=== PATIENT | female | born 1950 | race African-American/Black ===

== ENCOUNTER 2016-07-13 18:46 | Inpatient (IN) | payer BC, OTHER ==
[~2016-07-13] VITALS: Ht 165.1 cm; Wt 99.6 kg
[~2016-07-13 18:46] MED LIST: BYSTOLIC5 MG PO; CYCL1DRO EACHEYE; DOCU-27 PO; ENOX40DI SQ; LEVO100T PO; LIRA0.6P2 PO; LOSA1TAB18 PO; LOSA25TA4 PO; MIRA50TA PO; MULT1TAB52 PO; OMEG500C PO; OXYC-323 PO; PANT40TA3 PO; RIVA20TA2 PO; SUCR1TAB PO
[2016-07-13 20:25] VITALS: BP 137/80
--- NOTE | 2016-07-13 20:35 | EKG ---
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
[2016-07-13] MEDS ORDERED: POTASSIUM CHLORIDE 10 MEQ TABLET.ER. PO ONE (22:00)
[2016-07-13 22:19] LABS: MAGNESIUM 2.2 mg/dL (1.8-2.4); PHOSPHORUS 3.4 mg/dL (2.6-4.7)
[2016-07-13 22:22] LABS: ALBUMIN 3.7 g/dL (3.4-5.0); CALCIUM 9.1 mg/dL (8.5-10.1); GFR 67.5; TOTAL BILIRUBIN 0.5 mg/dL (0.2-1.0); TOTAL PROTEIN 7.3 g/dL (6.4-8.2)
[2016-07-13 22:25] LABS: POTASSIUM 2.6 mmol/L (3.5-5.1)
[2016-07-13 22:29] LABS: CKMB INDEX 0.7 % (0-4); CKMB MASS 2.3 ng/mL (0.0-3.6)
[2016-07-13 23:10] VITALS: BP 123/56
[2016-07-13] MEDS: CALCIUM CARBONATE 500 MG TAB.CHEW PO PRN (23:30)
[2016-07-14 03:05] VITALS: BP 130/62
[2016-07-14] MEDS: LEVOTHYROXINE 100 MCG TABLET PO SCH (06:26)
[2016-07-14 07:00] VITALS: BP 131/68
[2016-07-14] MEDS ORDERED: PANTOPRAZOLE 40 MG TABLET. PO SCH (07:00)
[2016-07-14] MEDS ORDERED: POTASSIUM CHLORIDE 20 MEQ TABLET.ER. PO ONE ×3 (08:00→21:15)
[2016-07-14] MEDS ORDERED: POTASSIUM CHLORIDE 10 MEQ TABLET.ER. PO ONE ×2 (08:00→13:45)
[2016-07-14] MEDS: LOSARTAN POTASSIUM 50 MG TABLET. PO SCH (08:49)
[2016-07-14] MEDS: SUCRALFATE 1 GM TABLET. PO SCH ×4 (08:50→20:52)
[2016-07-14] MEDS: CARVEDILOL 12.5 MG TABLET PO SCH ×2 (08:50→18:02)
[2016-07-14] MEDS ORDERED: SPIRONOLACTONE 25 MG TABLET PO SCH (09:00)
[2016-07-14 10:50] VITALS: BP 135/71
[2016-07-14 14:56] VITALS: BP 119/63
--- NOTE | 2016-07-14 18:35 | HP ---
ADMIT DATE: 07/13/2016 HISTORY OF PRESENT ILLNESS: This is a 66-year-old black female who has been hospitalized for severe cramps and hypokalemia. I saw her on the evening of the . She stated that she was having severe cramps in her muscles and that is what she felt when she was hypokalemic in the past. Lab work was drawn. The lab work was available to me on the evening of the . Her potassium was found to be 2.7. When I called her, she said that she was still having severe cramps, was also having palpitations. With the fear that she may be having arrhythmia, she was hospitalized for potassium replacement. Over 10 years ago, she said she was hypokalemic and had to be given IV potassium supplements. She does not know the circumstances of why the hypokalemia occurred. Again, about 2 years ago, she was having a colonoscopy. The potassium drawn just before that was low. The colonoscopy was canceled. Again, she was given potassium supplements and the colonoscopy was rescheduled. I am not sure whether the prep caused her to be hypokalemic, though it usually does not do so. She says that she had hysterectomy and bilateral salpingo-oophorectomy last month. Ever since her surgery, she has been having episodes of vomiting, which occurs almost every day, but not necessarily every day. She has had no vomiting for 2 days. She has had no diarrhea. The potassium loss is probably due to the vomiting. She is also on hydrochlorothiazide 12.5 mg along with losartan. I went over the chart. She sees Dr. Fuller. 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 Her potassium usually ranges from 3.4-4 mEq per liter. She has hypertension. She has dyslipidemia. She has diabetes. PRESENT MEDICATIONS: 1. Eye drops. 2. Colace 100 mg twice a day. 3. Synthroid 100 mcg a day. 4. Victoza 3 times a day. 5. Losartan/hydrochlorothiazide 100/12.5 mg once a day. 6. Myrbetriq for urinary frequency 50 mg a day. 7. Bystolic 5 mg a day. 8. Oxycodone. 9. Protonix 40 mg a day. 10. Xarelto 20 mg a day. 11. Carafate 1 tablet 4 times a day. When I saw her in the office on the , her blood pressure significantly elevated. Her blood pressure has been elevated since she has been taking the Myrbetriq. She feels she needs the Myrbetriq. I have asked her to increase the dose of Bystolic to 10 mg a day. LABORATORY DATA: Her labs in the office showed that her diabetes is under good control. Her TSH is normal. The potassium was 2.2. PHYSICAL EXAMINATION: GENERAL: She was in no acute distress. VITAL SIGNS: The heart rate was 80 per minute and regular. There were very occasional PVCs. Blood pressure 130/80. LUNGS: Clear. HEART: The heart sounds are normal with no murmur or gallop. ABDOMEN: Soft. It is not distended. EXTREMITIES: There is no edema of the legs. IMPRESSION: 1. Severe hypokalemia causing palpitations and muscle cramps. 2. History of recent episodes of vomiting, probably causing the hypokalemia. 3. Hypertension. 4. Diabetes, under control. An attempt was made to place an IV. This was not possible. We will give oral potassium and check her potassium levels frequently. We will also place her on a drug that tends to retain potassium. is not available. We will thus give her spironolactone. We will have to check her potassium levels frequently. YUMIKO FIELDS MD DR: EDITH/benjamin JOB#: [id number] / [id number]
[2016-07-14 19:33] VITALS: BP 133/67
[2016-07-14] MEDS: SPIRONOLACTONE 25 MG TABLET PO SCH (20:52)
[2016-07-14] MEDS ORDERED: DIPHENHYDRAMINE HCL 25 MG CAPSULE PO PRN (22:00)
[2016-07-14 23:40] VITALS: BP 116/64
[2016-07-15 03:41] VITALS: BP 133/64
[2016-07-15] MEDS: CALCIUM CARBONATE 500 MG TAB.CHEW PO PRN (04:27)
[2016-07-15 05:28] LABS: CALCIUM 8.7 mg/dL (8.5-10.1); GFR 67.5; POTASSIUM 3.6 mmol/L (3.5-5.1)
--- NOTE | 2016-07-15 05:34 | ACF ---
Admission Forms Criteria HYPONATREMIA; HYPERNATREMIA; HYPOKALEMIA; HYPERKALEMIA; HYPOCALCEMIA; HYPERCALCEMIA Clinical Indications for Inpatient Care (Place 'X' for any and all applicable criteria): Ongoing inpatient care may be indicated for ANY ONE of the following [G](1)(2)(3 )(5): [ ]I. Hyponatremia with ANY ONE of the following: [ ]a) Sodium less than 130 mEq/L (mmol/L) (new) (6)(22) [ ]b) Sodium less than 135 mEq/L (mmol/L) with ANY ONE of the following: [ ]i) Severe medical etiology requiring inpatient management (eg, heart failure, hypovolemia) [ ]ii) Altered mental status [ ]iii) Seizures [ ]II. Hypernatremia with ANY ONE of the following: [ ]a) Sodium greater than 155 mEq/L (mmol/L) [ ]b) Sodium greater than 150 mEq/L (mmol/L) with ANY ONE of the following: [ ] i) Altered mental status [ ]ii) Seizures [ ]iii) Severe medical etiology (eg, hypovolemia, diabetes insipidus) [ ]iv) Severe weakness [ ]v) Severe medical etiology (eg, hemolysis, infection, drug overdose) [X]III. Hypokalemia with ANY ONE of the following: [ ]a) Potassium less than 2.5 mEq/L (mmol/L) despite outpatient and emergency treatment [X]b) Potassium less than 3.0 mEq/L (mmol/L) with ANY ONE of the following: [ ]i) Weakness [ ]ii) Cardiac abnormality (eg, arrhythmia, conduction disturbance) [ ]iii) Cardiac ischemia [ ]iv) Ileus [ ]v) Ongoing medical cause requiring inpatient management. ( e.g., acute renal wasting, SIADH) [X]vi) Other severe symptoms [ ] IV. Hyperkalemia with ANY ONE of the following: [ ]a) Potassium greater than 6.5 mEq/L (mmol/L) [ ]b) Potassium greater than 5 mEq/L (mmol/L) with ANY ONE of the following: [ ]i) Severe ECG findings [H] [ ]ii) Acute worsening of renal failure (creatinine greater than 2.5 mg/dL (221 micromoles/L) or significant elevation for age and size) [ ] V. Hypocalcemia with ANY ONE of the following: [ ]a) Calcium less than 7 mg/dL (1.75 mmol/L) despite outpatient and emergency treatment(19) [ ]b) Calcium less than 8 mg/dL (2 mmol/L) with significant symptoms or findings; examples include: [ ]i) Cardiac abnormality (eg, arrhythmia or conduction disturbance) [ ]ii) Altered mental status [ ]iii) Seizures [ ]iv) Breathing difficulty [ ]v) Muscle spasms [ ]. Hypercalcemia with ANY ONE of the following: [ ]a) Calcium greater than 14 mg/dL (3.5 mmol/L) [ ]b) Calcium greater than 12 mg/dL (3 mmol/L) with ANY ONE of the following: [ ]i) Significant dehydration or hypovolemia as indicated by ANY ONE of the following(2): [ ]1. Clinically significant dehydration as indicated by ANY ONE of the following: [ ]A. Acute loss of weight from baseline (5% of body weight in adults, 9% in pediatric patients) [ ]B. Hemodynamic instability [ ]C. Acute renal failure [ ]D. Serum sodium greater than 150 mEq/L (mmol/L) [ ]2) Dehydration that is persistent indicated by ALL of the following: [ ]A. Oral rehydration therapy not tolerated or insufficient to adequately correct dehydration [ ]B. Appropriate intravenous treatment (eg, fluids ) does not readily correct dehydration ie, after 12 to 24 hours of treatment) [ ]ii) Significant symptoms or findings; examples include: [ ]1) Altered mental status [ ]2) Cardiac abnormality (eg, arrhythmia, conduction disturbance) [ ]3) Cardiac abnormality (eg, arrhythmia, conduction disturbance) The original [facility] content created by [id number] has been revised. The portions of the content which have been revised are identified through the use of italic text or in bold, and [facility] has neither reviewed nor approved the modified material. All other unmodified content is copyright [facility] [employer] Please see references footnoted in the original [facility] [email or web address] edition 2016 Admission Criteria Met?: Yes CUONG PANDA Jul 15, 2016 05:34
[2016-07-15] MEDS: LEVOTHYROXINE 100 MCG TABLET PO SCH (06:59)
[2016-07-15 07:50] VITALS: BP 147/74
[2016-07-15] MEDS: SUCRALFATE 1 GM TABLET. PO SCH ×2 (07:50→12:24)
[2016-07-15] MEDS ORDERED: PANTOPRAZOLE 40 MG TABLET. PO SCH (08:00)
[2016-07-15] MEDS: CARVEDILOL 12.5 MG TABLET PO SCH (08:49)
[2016-07-15] MEDS: LOSARTAN POTASSIUM 50 MG TABLET. PO SCH (08:49)
[2016-07-15] MEDS: SPIRONOLACTONE 25 MG TABLET PO SCH (08:50)
[2016-07-15 11:31] VITALS: BP 138/73
[2016-07-15] MEDS ORDERED: POTASSIUM CHLORIDE 10 MEQ TABLET.ER. PO ONE (15:00)
[2016-07-15] MEDS ORDERED: LOSA100T6 PO (15:13)
[2016-07-15] MEDS ORDERED: SPIR25TA3 PO (15:13)
[2016-07-15] MEDS ORDERED: PANTOPRAZOLE 40 MG TABLET. PO PRN (15:15)
[2016-07-15] MEDS ORDERED: OXYCODONE/APAP 5/325 TABLET. PO PRN ×2 (15:15→15:30)
[2016-07-15] MEDS ORDERED: POTA10TA10 PO (15:15)
[2016-07-15 15:55] VITALS: BP 141/75
[2016-07-15] MEDS ORDERED: SUCRALFATE 1 GM TABLET. PO SCH (16:30)
[2016-07-15] MEDS ORDERED: DOCUSATE SODIUM 100 MG CAPSULE PO SCH (21:00)
[2016-07-15] MEDS ORDERED: CYCLOSPORINE 0.05% OPTH DROPERETTE. OU SCH (21:00)
[2016-07-15] MEDS ORDERED: METOPROLOL TART IMMED RELEASE 25 MG TABLET PO SCH (21:00)
--- NOTE | 2016-07-15 21:57 | DS ---
DATE OF DISCHARGE: 07/15/2016 HOSPITAL COURSE: This is a 66-year-old black female who saw me in the office complaining of severe muscle cramps and palpitations. She was on hydrochlorothiazide 12.5 with losartan 100 mg a day. She was not on any potassium supplements. Lab work was drawn. She was found to be significantly hypokalemic with potassium of 2.7 mEq per liter. Because of her significant symptoms and palpitations, she was hospitalized and monitored. Oral potassium was given. Her potassium was checked every 4 hours. Her potassium at the time of admission was down to 2.6 mEq per liter. The next morning it was 3. The next evening it was still 3.6. By the 15 morning, it had gone up to 3.7 and stayed at that level. The magnesium level was normal at 2.2. Her renal functions were normal. In addition to the potassium, she was also given spironolactone 50 mg twice a day. She had no further cramps. She was feeling better. She was thus discharged because her potassium level had now become normal at 3.[address]. FINAL DIAGNOSES: 1. Severe hypokalemia causing palpitations and muscle cramps. 2. Hypertension. 3. Gastroenteritis. 4. Recent hysterectomy. OTHER LAB INVESTIGATIONS: The BUN was 13, creatinine was 1. The blood sugars stayed normal. The CK was up to 342. The phosphorus was normal. HOMEGOING INSTRUCTIONS: 1. Activities to tolerance. 2. Low sodium diet. 3. Eye drops. 4. Colace 100 mg twice a day. 5. Synthroid 100 mcg a day. 5. Victoza 0.6 mg a day. 6. Losartan 100 mg a day. 7. Spironolactone 25 mg twice a day. 8. Potassium chloride 10 mEq twice a day. 9. She was asked to stop the Myrbetriq. 10. Bystolic 5 mg a day. 11. Percocet. 12. Protonix 40 mg twice a day. 13. Carafate 1 g before each meal and at night. She will be followed in the office on the , at which time labs will be done. YUMIKO FIELDS MD DR: EDITH/benjamin JOB#: [id number] / [id number]
[2016-07-16] MEDS ORDERED: LEVOTHYROXINE 100 MCG TABLET PO SCH (07:30)
[2016-07-16] MEDS ORDERED: NON FORMULARY ITEM (Liraglutide (Victoza 3-Pak) 0.6 MG) PO SCH (09:00)
== END 2016-07-15 15:50 | disposition home or self-care (01) | DRG 641 ==
LOC: 2 SOUTH 19:49
PROVIDERS: ADMIT Specialist; ATTEND Specialist
DX: E87.6 Hypokalemia (principal); I10 Essential (primary) hypertension; E78.5 Hyperlipidemia, unspecified; E11.9 Type 2 diabetes mellitus without complications; K52.9 Noninfective gastroenteritis and colitis, unspecified; Z90.710 Acquired absence of both cervix and uterus; Z98.890 Other specified postprocedural states
CPT/HCPCS: 36415; 80048; 80053; 82553; 82947; 83735; 84100; 84132; 84133; 87086; 93005; Q0163

== ENCOUNTER 2016-11-20 05:21 | Emergency (ER) | payer BC, OTHER ==
[~2016-11-20] VITALS: Ht 165.1 cm; Wt 99.3 kg
[~2016-11-20 05:21] MED LIST changes: +DOCU-109 PO; -DOCU-27 PO; +LOSA100T6 PO; +POTA10TA12 PO; +SPIR25TA3 PO
--- NOTE | 2016-11-20 06:19 | ED.ADGEN ---
Past Medical History Past Medical History: Diverticulitis, GERD, Hypertension, Hypothyroid, Other Additional Past Medical Histor: TAKES MECLINZINE FOR MOTION SICKNESS, BLOOD CLOT, DVT Past Surgical History: Appendectomy, Hysterectomy, Other Additional Past Surgical Histo: RODRIGUEZ SHUNT, EGD, Alcohol Use: None Drug Use: None Adult General Chief Complaint Chief Complaint: LOWER EXT PAIN HPI HPI Patient is a 66 year old, history of hypothyroidism, hypertension, DVT in the right lower extremity back in August of this year, who presents to the emergency department with complaint of pain and swelling in the right lower extremity the past 6 days. Patient denies any injuries, denies any recent travel or surgery, states that she started on estradiol patch in September of this year. She was treated for approximately 1 year with Lovenox and then Xarelto after a previous DVT was diagnosed in August of last year. Patient states that the cause of the DVT was not determined. She denies any chest pain or shortness of breath, denies any weakness, numbness, tingling, rashes or skin changes, GI or complaints, any weakness, numbness or tingling. She has not taken any medication for pain prior to coming to the ED. She has not yet taken her morning medications. Review of Systems Review of Systems Constitutional: Denies fever or chills. [] Eyes: Denies change in visual acuity. [] HENT: Denies nasal congestion or sore throat. [] Respiratory: Denies cough or shortness of breath. [] Cardiovascular: Denies chest pain or edema. [] GI: Denies abdominal pain, nausea, vomiting, bloody stools or diarrhea. [] : Denies dysuria. [] Musculoskeletal: Denies back pain or joint pain. In swelling in the right lower extremity, from behind the knee radiating in the lateral aspect of the leg down to the ankle. Integument: Denies rash. [] Neurologic: Denies headache, focal weakness or sensory changes. [] Endocrine: Denies polyuria or polydipsia. [] Lymphatic: Denies swollen glands. [] Psychiatric: Denies depression or anxiety. [] Current Medications Current Medications Current Medications Medications (Trade) Dose Ordered Sig/Kevyn Start Time Stop Time Status Last Admin Dose Admin Acetaminophen (Tylenol) 650 mg 1X ONCE 11/20/16 06:30 11/20/16 06:31 DC 11/20/16 06:36 650 MG Cyclobenzaprine HCl (Flexeril) 5 mg 1X ONCE 11/20/16 06:30 11/20/16 06:31 DC 11/20/16 06:36 5 MG Allergies Allergies Allergies Coded Allergies Type Severity Reaction Last Updated Verified Sulfa (Sulfonamide Antibiotics) Allergy Intermediate 06/14/16 Yes Physical Exam Physical Exam Constitutional: Well developed, well nourished, no acute distress, non-toxic appearance. [] HENT: Normocephalic, atraumatic, bilateral external ears normal, oropharynx moist, no oral exudates, nose normal. [] Eyes: PERRLA, EOMI, conjunctiva normal, no discharge. [] Neck: Normal range of motion, no tenderness, supple, no stridor. [] Cardiovascular:Heart rate regular rhythm, no murmur, S1, S2, no rubs or gallops. [] Lungs & Thorax: Bilateral breath sounds clear to auscultation, no wheezing, rhonchi, rales. No chest wall crepitus or tenderness. [] Abdomen: Bowel sounds normal, soft, no tenderness, no masses, no pulsatile masses. [] Skin: Warm, dry, no erythema, no rash. [] Back: No tenderness, no CVA tenderness. [] Extremities: Tenderness palpation in the popliteal fossa, on the lateral aspect of the calf on the right lower extremity, no significant swelling identified, pain with passive and active range of motion, no cyanosis, no clubbing, ROM intact, no edema. [] Neurologic: Alert and oriented X 3, normal motor function, normal sensory function, no focal deficits noted. [] Psychologic: Affect normal, judgement normal, mood normal. [] Current Patient Data Vital Signs Vital Signs Date Time Temp Pulse Resp B/P (MAP) Pulse Ox O2 Delivery O2 Flow Rate FiO2 11/20/16 05:43 95.5 65 18 192/86 (121) 98 Room Air 95.5 Lab Values Laboratory Tests Test 11/20/16 07:00 White Blood Count 4.6 x10^3/uL (4.0-11.0) Red Blood Count 4.19 x10^6/uL (3.50-5.40) Hemoglobin 12.8 g/dL (12.0-15.5) Hematocrit 38.9 % (36.0-47.0) Mean Corpuscular Volume 93 fL (79-100) Mean Corpuscular Hemoglobin 31 pg (25-35) Mean Corpuscular Hemoglobin Concent 33 g/dL (31-37) Red Cell Distribution Width 13.5 % (11.5-14.5) Platelet Count 156 x10^3/uL (140-400) Neutrophils (%) (Auto) 65 % (31-73) Lymphocytes (%) (Auto) 21 % (24-48) L Monocytes (%) (Auto) 9 % (0-9) Eosinophils (%) (Auto) 5 % (0-3) H Basophils (%) (Auto) 1 % (0-3) Neutrophils # (Auto) 3.0 x10^3uL (1.8-7.7) Lymphocytes # (Auto) 0.9 x10^3/uL (1.0-4.8) L Monocytes # (Auto) 0.4 x10^3/uL (0.0-1.1) Eosinophils # (Auto) 0.2 x10^3/uL (0.0-0.7) Basophils # (Auto) 0.0 x10^3/uL (0.0-0.2) Sodium Level 144 mmol/L (136-145) Potassium Level 3.5 mmol/L (3.5-5.1) Chloride Level 108 mmol/L (98-107) H Carbon Dioxide Level 28 mmol/L (21-32) Anion Gap 8 (6-14) Blood Urea Nitrogen 21 mg/dL (7-20) H Creatinine 0.9 mg/dL (0.6-1.0) Estimated GFR (Cockcroft-Gault) 76.3 Glucose Level 103 mg/dL (70-99) H Calcium Level 8.8 mg/dL (8.5-10.1) Laboratory Tests 11/20/16 07:00 Laboratory Tests 11/20/16 07:00 EKG EKG EC: Sinus rhythm, heart rate 50 bpm, left axis deviation with left ventricular hypertrophy noted, QTc of 437, FL 176, QRS of 84, contour abnormality is noted as stated, no ST elevations or depressions. As interpreted by me. [] Radiology/Procedures Radiology/Procedures [][facility] [address] [place] [address] IMAGING REPORT Signed PATIENT: CELSO HOANG ACCOUNT: [id number] : 1950 LOCATION: ER AGE: 66 SEX: F EXAM STATUS: REG ER ORD. PHYSICIAN: DEVONTE ALFORD DO REASON: Pain/swelling/hx DVT PROCEDURE: VENOUS LOWER EXTREMITY RIGHT Right lower extremity venous ultrasound, 11/20/2016 : History: Right leg pain and swelling Duplex evaluation including grayscale, color flow and spectral Doppler analysis was performed. The femoral and popliteal veins show no filling defects to suggest DVT. The visualized calf veins are unremarkable. IMPRESSION: There is no sonographic evidence of deep vein thrombosis in the right lower extremity DICTATED and SIGNED BY: NANCY WHALEN MD DATE: 11/20/16 0734 CC: DEVONTE ALFORD DO; YUMIKO BARTON MD ~ Course & Med Decision Making Course & Med Decision Making Pertinent Labs and Imaging studies reviewed. (See chart for details) Patient complains of sharp shooting pain in the right lower extremity for the past 5 days, also swelling. Does use an estradiol patch, reports unclear etiology of initial DVT. Patient is complaining of some pain in other parts of her body currently as well, but believes is due to the uncomfortable emergency department bed. Agreeable to receiving ultrasound, laboratory studies to rule out any electrolyte abnormalities or hematologic abnormalities in the causing this cramping sharp and stabbing pain. Ultrasound did not reveal evidence of DVT in the right lower extremity, laboratory studies do not reveal any acutely concerning findings. I did discuss findings as above with Dr. Barton, the patient's primary care provider. On reevaluation patient is feeling better after receiving naproxen the ED, is relieved by the ultrasound findings. Discussed use of naproxen, with food in the stomach to mitigate GERD type symptoms, reasons for discontinuing naproxen, use of cyclobenzaprine and medication precautions. Based on location and presentation of pain, patient may be experiencing some sciatic type symptoms, as the pain in the lateral aspect of the leg radiating down from the posterior aspect in the knee, discussed with Dr. Barton as stated, who will follow the patient in the office. Patient given clear and detailed return and precautions instructions as stated, discharged home in stable condition with plan as above. Dragon Disclaimer Dragon Disclaimer This electronic medical record was generated, in whole or in part, using a voice recognition dictation system. Departure Impression: Primary Impression: Pain of right lower extremity Disposition: 01 HOME, SELF-CARE Condition: IMPROVED Scripts Naproxen (NAPROXEN) 250 Mg Tablet 250 MG PO PRN BID Y for PAIN, #10 Take with food. Stop use if stomach upset develops. Prov: DEVONTE ALFORD DO 11/20/16 Cyclobenzaprine Hcl (CYCLOBENZAPRINE HCL) 10 Mg Tablet 10 MG PO TID Y for MUSCLE PAIN, #12 TAB Prov: DEVONTE ALFORD DO 11/20/16 DEVONTE ALFORD DO November 20, 2016 06:19
[2016-11-20] MEDS ORDERED: ACETAMINOPHEN 325 MG TABLET. PO ONE (06:30)
[2016-11-20] MEDS ORDERED: CYCLOBENZAPRINE 10 MG TABLET. PO ONE (06:30)
[2016-11-20 07:23] LABS: CALCIUM 8.8 mg/dL (8.5-10.1); CREATININE 0.9 mg/dL (0.6-1.0); GFR 76.3; POTASSIUM 3.5 mmol/L (3.5-5.1)
[2016-11-20 07:24] LABS: BASO % 1 % (0-3); EOS % 5 % (0-3); HEMATOCRIT 38.9 % (36.0-47.0); HEMOGLOBIN 12.8 g/dL (12.0-15.5); LYMPH # 0.9 x10^3/uL (1.0-4.8); LYMPH % 21 % (24-48); MEAN CORPUSCULAR HEMOGLOBIN 31 pg (25-35); MEAN CORPUSCULAR HGB CONC 33 g/dL (31-37); MEAN CORPUSCULAR VOLUME 93 fL (79-100); MONO % 9 % (0-9); NEUT % 65 % (31-73); PLATELET COUNT 156 x10^3/uL (140-400); RED BLOOD COUNT 4.19 x10^6/uL (3.50-5.40); RED CELL DISTRIBUTION WIDTH 13.5 % (11.5-14.5); WHITE BLOOD COUNT 4.6 x10^3/uL (4.0-11.0)
--- NOTE | 2016-11-20 07:29 | EKG ---
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
--- NOTE | 2016-11-20 07:37 | RAD ---
Right lower extremity venous ultrasound, 11/20/2016 : History: Right leg pain and swelling Duplex evaluation including grayscale, color flow and spectral Doppler analysis was performed. The femoral and popliteal veins show no filling defects to suggest DVT. The visualized calf veins are unremarkable. IMPRESSION: There is no sonographic evidence of deep vein thrombosis in the right lower extremity
[2016-11-20 07:45] VITALS: BP 162/77
[2016-11-20] MEDS ORDERED: CYCL10TA2 PO (08:03)
[2016-11-20] MEDS ORDERED: NAPR250T2 PO (08:03)
== END 2016-11-20 08:12 | disposition home or self-care (01) ==
LOC: ER 05:21
DX: M79.604 Pain in right leg (principal); M79.89 Other specified soft tissue disorders; E03.9 Hypothyroidism, unspecified; I10 Essential (primary) hypertension; K21.9 Gastro-esophageal reflux disease without esophagitis; Z86.718 Personal history of other venous thrombosis and embolism; Z90.710 Acquired absence of both cervix and uterus; Z90.49 Acquired absence of other specified parts of digestive tract; Z88.2 Allergy status to sulfonamides
CPT/HCPCS: 36415; 80048; 85027; 93005; 93971; 99285-25

== ENCOUNTER 2017-01-26 10:50 | Inpatient (IN) | payer BC, OTHER ==
[~2017-01-26] VITALS: Ht 165.1 cm; Wt 100.3 kg
[~2017-01-26 10:50] MED LIST changes: +CYCL10TA2 PO; +NAPR250T2 PO
--- NOTE | 2017-01-26 11:36 | ED.ADGEN ---
Past Medical History Past Medical History: Diverticulitis, GERD, Hypertension, Hypothyroid, Other Additional Past Medical Histor: TAKES MECLINZINE FOR MOTION SICKNESS, BLOOD CLOT, DVT Past Surgical History: Appendectomy, Hysterectomy, Other Additional Past Surgical Histo: RODRIGUEZ SHUNT, EGD, Alcohol Use: None Drug Use: None Adult General Chief Complaint Chief Complaint: DIZZY/LIGHT HEADED HPI HPI Patient is a 66 year old woman, history of hypertension, obesity, DVT often anticoagulation, who presents to the emergency department with a complaint of dizziness that began last night. Patient describes this as a spinning of the run around her, also a lightheadedness as is pass out, states she feels as though "my chest feels funny", denies any shortness of breath, nausea vomiting, abdominal pain, diarrhea, states that she has some pain in her left lower extremity where she had varicose veins treated last week, states that she is feeling weaker on his left leg, denies any other focal weakness, any numbness or tingling. States that she did feel similar symptoms previously when he had a "low potassium", states this is because of a blood pressure medication that was discontinued and then restarted. Patient was also started on Contrave, naltrexone/bupropion hydrochloride about 3 weeks ago for obesity which she has been taking as directed. Denies any other medication changes or missed doses Review of Systems Review of Systems Constitutional: Denies fever or chills. [] Lightheadedness and dizziness. Eyes: Denies change in visual acuity. [] HENT: Denies nasal congestion or sore throat. [] Respiratory: Denies cough or shortness of breath. [] Cardiovascular: Denies chest pain or edema. [] GI: Denies abdominal pain, nausea, vomiting, bloody stools or diarrhea. [] : Denies dysuria. [] Musculoskeletal: Denies back pain or joint pain. [] Integument: Denies rash. [] Neurologic: Denies headache, focal weakness or sensory changes. Weakness in the left lower extremity.[] Endocrine: Denies polyuria or polydipsia. [] Lymphatic: Denies swollen glands. [] Psychiatric: Denies depression or anxiety. [] Allergies Allergies Allergies Coded Allergies Type Severity Reaction Last Updated Verified Sulfa (Sulfonamide Antibiotics) Allergy Intermediate 06/14/16 Yes Physical Exam Physical Exam Constitutional: Well developed, well nourished, no acute distress, non-toxic appearance. [] HENT: Normocephalic, atraumatic, bilateral external ears normal, oropharynx moist, no oral exudates, nose normal. [] Eyes: PERRLA, EOMI, conjunctiva normal, no discharge. [] Neck: Normal range of motion, no tenderness, supple, no stridor. [] Cardiovascular:Heart rate regular rhythm, no murmur [] Lungs & Thorax: Bilateral breath sounds clear to auscultation [] Abdomen: Bowel sounds normal, soft, no tenderness, no masses, no pulsatile masses. [] Skin: Warm, dry, no erythema, no rash. [] Back: No tenderness, no CVA tenderness. [] Extremities: No tenderness, no cyanosis, no clubbing, ROM intact, no edema. [] Neurologic: Alert and oriented X 3, normal motor function, normal sensory function, no focal deficits noted. [] Psychologic: Affect normal, judgement normal, mood normal. [] Current Patient Data Vital Signs Vital Signs Date Time Temp Pulse Resp B/P (MAP) Pulse Ox O2 Delivery O2 Flow Rate FiO2 01/26/17 11:10 98.1 58 18 149/78 (101) 98 Room Air 98.1 Lab Values Laboratory Tests Test 01/26/17 12:00 01/26/17 13:20 White Blood Count 5.3 x10^3/uL (4.0-11.0) Red Blood Count 4.47 x10^6/uL (3.50-5.40) Hemoglobin 13.7 g/dL (12.0-15.5) Hematocrit 41.1 % (36.0-47.0) Mean Corpuscular Volume 92 fL (79-100) Mean Corpuscular Hemoglobin 31 pg (25-35) Mean Corpuscular Hemoglobin Concent 33 g/dL (31-37) Red Cell Distribution Width 13.2 % (11.5-14.5) Platelet Count 167 x10^3/uL (140-400) Neutrophils (%) (Auto) 67 % (31-73) Lymphocytes (%) (Auto) 18 % (24-48) L Monocytes (%) (Auto) 10 % (0-9) H Eosinophils (%) (Auto) 4 % (0-3) H Basophils (%) (Auto) 1 % (0-3) Neutrophils # (Auto) 3.6 x10^3uL (1.8-7.7) Lymphocytes # (Auto) 1.0 x10^3/uL (1.0-4.8) Monocytes # (Auto) 0.5 x10^3/uL (0.0-1.1) Eosinophils # (Auto) 0.2 x10^3/uL (0.0-0.7) Basophils # (Auto) 0.0 x10^3/uL (0.0-0.2) Prothrombin Time 12.7 SEC (11.7-14.0) Prothrombin Time INR 1.0 (0.8-1.1) PTT 35 SEC (24-38) D-Dimer (Kiki) 0.85 ug/mlFEU (0.00-0.50) H Sodium Level 143 mmol/L (136-145) Potassium Level 3.6 mmol/L (3.5-5.1) Chloride Level 108 mmol/L (98-107) H Carbon Dioxide Level 30 mmol/L (21-32) Anion Gap 5 (6-14) L Blood Urea Nitrogen 21 mg/dL (7-20) H Creatinine 1.0 mg/dL (0.6-1.0) Estimated GFR (Cockcroft-Gault) 67.5 BUN/Creatinine Ratio 21 (6-20) H Glucose Level 93 mg/dL (70-99) Calcium Level 8.6 mg/dL (8.5-10.1) Magnesium Level 2.2 mg/dL (1.8-2.4) Total Bilirubin 0.8 mg/dL (0.2-1.0) Aspartate Amino Transferase (AST) 18 U/L (15-37) Alanine Aminotransferase (ALT) 26 U/L (14-59) Alkaline Phosphatase 46 U/L (46-116) Troponin I Quantitative < 0.017 ng/mL (0.000-0.055) PD-Bxe-J-Type Natriuretic Peptide 89 pg/mL (0-124) Total Protein 6.6 g/dL (6.4-8.2) Albumin 3.5 g/dL (3.4-5.0) Albumin/Globulin Ratio 1.1 (1.0-1.7) Urine Collection Type Unknown Urine Color Yellow Urine Clarity Clear Urine pH 6.5 Urine Specific Ranger 1.010 Urine Protein Negative mg/dL (NEG-TRACE) Urine Glucose (UA) Negative mg/dL (NEG) Urine Ketones (Stick) Negative mg/dL (NEG) Urine Blood Negative (NEG) Urine Nitrite Negative (NEG) Urine Bilirubin Negative (NEG) Urine Urobilinogen Dipstick 0.2 mg/dL (0.2 mg/dL) Urine Leukocyte Esterase Negative (NEG) Urine RBC 0 /HPF (0-2) Urine WBC 0 /HPF (0-4) Urine Squamous Epithelial Cells Few /LPF Urine Bacteria 0 /HPF (0-FEW) Laboratory Tests 01/26/17 12:00 Laboratory Tests 01/26/17 12:00 EKG EKG EC: Sinus rhythm, heart rate 55 beats/minute, left axis deviation, left ventricular hypertrophy noted with anterior septal abnormalities, inferior abnormalities, no ST elevations or depressions, abnormal ECG, does not meet STEMI criteria. QTC of 437, MD 182, QRS of 90, as interpreted by me. [] Interpretation Time: [facility] [address] [place], [place] [id number] IMAGING REPORT Signed PATIENT: CELSO HOANG ACCOUNT: [id number] : 1950 LOCATION: [address] [place] [address] AGE: 66 SEX: F EXAM STATUS: ADM IN ORD. PHYSICIAN: DEVONTE ALFORD DO REASON: Pain/swelling s/p varicose vein treatment, history of DVT PROCEDURE: VENOUS LOWER EXTREMITY LEFT Left leg venous Doppler study: Clinical indications: Left leg swelling and pain. History of greater saphenous vein ablation. Findings: Duplex sonography (including bedolla scale evaluation and color flow and waveform spectral analysis) of the proximal aspect of the profunda femoral vein and the entire length of the common femoral and superficial femoral and popliteal veins and the tibioperoneal trunk and the proximal aspect of the posterior tibial and peroneal veins of the left leg was performed. Normal compressibility, augmentation of color Doppler flow after calf compression, and respiratory variation of Doppler flow is seen. Thus, there are no sonographic findings of deep venous thrombosis within these veins. The greater saphenous vein is thrombosed related to ablation therapy. Impression: There are no sonographic findings of deep venous thrombosis within the veins discussed above of the left lower extremity. DICTATED and SIGNED BY: TOMI WU MD DATE: 01/26/17 1340 CC: DEVONTE ALFORD DO; YUMIKO BARTON MD ~ Radiology/Procedures Radiology/Procedures [][facility] [address] [place] [address] IMAGING REPORT Signed PATIENT: CELSO HOANG ACCOUNT: [id number] : 1950 LOCATION: ER AGE: 66 SEX: F EXAM STATUS: REG ER ORD. PHYSICIAN: DEVONTE ALFORD DO REASON: dizziness PROCEDURE: CT HEAD WO CONTRAST Clinical indications: Dizziness today. Technique: Noncontrast axial cross sectional scanning of the head was performed. RS Compliance Statement: One or more of the following individualized dose reduction techniques were utilized for this examination: 1. Automated exposure control 2. Adjustment of the mA and/or kV according to patient size 3. Use of iterative reconstruction technique Comparison: None available. Findings: No acute intracranial hemorrhage or midline shift or mass-effect or hydrocephalus or extra-axial fluid collection is seen. No focal hypodense area or sulci effacement is seen to indicate an acute infarct or edema radiographically. No skull fracture or pneumocephalus is seen. No opacification of the mastoid sinuses or the paranasal sinuses is seen. The maxillary sinuses are not completely seen in this study. Impression: No acute intracranial abnormality is seen. DICTATED and SIGNED BY: TOMI WU MD DATE: 01/26/17 1228 CC: DEVONTE ALFORD DO; YUMIKO BARTON MD ~ Course & Med Decision Making Course & Med Decision Making Pertinent Labs and Imaging studies reviewed. (See chart for details) Patient with multiple complaints, dizziness, feeling of "fluttering", the chest , with a "strange sensation" associated with some shortness of breath as well, along with dizziness, lightheadedness, possible weakness in the left lower extremity, versus just increased pain and swelling following vein ablation that occurred earlier this week. With patient's complaints of weakness, history of possibly unprovoked DVT in a patient who was on exogenous estrogens, laboratory studies and imaging of the head and chest were obtained, multiple attempts required to obtain IV access, unable to obtain anything larger than a 22 and hands, therefore unable to proceed with CT imaging of the chest after patient's d-dimer was elevated. Head CT was unremarkable as was chest x-ray, I did speak with the patient regarding these findings, patient's potassium and other laboratory studies were within normal limits. Patient states that she continues to feel dizzy at this time, denies any new or different symptoms, ultrasound left lower extremity was obtained not reveal any evidence of DVT. I did discuss findings as above with Dr. Barton, patient primary care provider, who is currently out of town, and with Dr. Wakefield, who is covering for her primary this weekend. We'll proceed with obtaining a V/Q study of the chest to rule out PE, admission for serial enzymes and monitoring. Patient is agreeable this plan , remained stable in sinus rhythm on the monitor awaiting transport to the floor. Bridge orders entered per discussion. Dragon Disclaimer Dragon Disclaimer This electronic medical record was generated, in whole or in part, using a voice recognition dictation system. Departure Impression: Primary Impression: Dizziness Disposition: 09 ADMITTED INPATIENT Admitting Physician: Miguel Wakefield Condition: IMPROVED Departure Departure Impression: Primary Impression: Dizziness Disposition: 09 ADMITTED INPATIENT Condition: IMPROVED DEVONTE ALFORD DO Jan 26, 2017 11:36
[2017-01-26 12:07] LABS: BASO % 1 % (0-3); EOS % 4 % (0-3); HEMATOCRIT 41.1 % (36.0-47.0); HEMOGLOBIN 13.7 g/dL (12.0-15.5); LYMPH % 18 % (24-48); MEAN CORPUSCULAR HEMOGLOBIN 31 pg (25-35); MEAN CORPUSCULAR HGB CONC 33 g/dL (31-37); MEAN CORPUSCULAR VOLUME 92 fL (79-100); MONO % 10 % (0-9); NEUT % 67 % (31-73); PLATELET COUNT 167 x10^3/uL (140-400); RED BLOOD COUNT 4.47 x10^6/uL (3.50-5.40); RED CELL DISTRIBUTION WIDTH 13.2 % (11.5-14.5); WHITE BLOOD COUNT 5.3 x10^3/uL (4.0-11.0)
[2017-01-26 12:18] LABS: CALCIUM 8.6 mg/dL (8.5-10.1); GFR 67.5; POTASSIUM 3.6 mmol/L (3.5-5.1)
[2017-01-26 12:24] LABS: ALBUMIN 3.5 g/dL (3.4-5.0); ALBUMIN/GLOBULIN RATIO 1.1 (1.0-1.7); TOTAL BILIRUBIN 0.8 mg/dL (0.2-1.0); TOTAL PROTEIN 6.6 g/dL (6.4-8.2)
--- NOTE | 2017-01-26 12:34 | RAD ---
Clinical indications: Dizziness today. Technique: Noncontrast axial cross sectional scanning of the head was performed. PQRS Compliance Statement: One or more of the following individualized dose reduction techniques were utilized for this examination: 1. Automated exposure control 2. Adjustment of the mA and/or kV according to patient size 3. Use of iterative reconstruction technique Comparison: None available. Findings: No acute intracranial hemorrhage or midline shift or mass-effect or hydrocephalus or extra-axial fluid collection is seen. No focal hypodense area or sulci effacement is seen to indicate an acute infarct or edema radiographically. No skull fracture or pneumocephalus is seen. No opacification of the mastoid sinuses or the paranasal sinuses is seen. The maxillary sinuses are not completely seen in this study. Impression: No acute intracranial abnormality is seen.
--- NOTE | 2017-01-26 12:35 | RAD ---
Portable AP upright view CXR: Clinical indications: Dizziness today. Comparison: November 27, 2007 Findings: No acute lung infiltrate or pleural effusion or pulmonary edema or lung mass or pneumothorax is seen. The heart size, pulmonary vasculature, mediastinum and both clementine are unremarkable. Surgical clips are seen within left upper quadrant and epigastric region of the abdomen. Impression: No acute radiographic abnormality is seen.
[2017-01-26 13:31] LABS: BILIRUBIN,URINE NEGATIVE (NEG); GLUCOSE,URINE NEGATIVE (NEG); NITRITE,URINE NEGATIVE (NEG); PH,URINE 6.5; PROTEIN,URINE NEGATIVE (NEG-TRACE); UROBILINOGEN,URINE 0.2 mg/dL (0.2 mg/dL)
--- NOTE | 2017-01-26 13:44 | RAD ---
Left leg venous Doppler study: Clinical indications: Left leg swelling and pain. History of greater saphenous vein ablation. Findings: Duplex sonography (including bedolla scale evaluation and color flow and waveform spectral analysis) of the proximal aspect of the profunda femoral vein and the entire length of the common femoral and superficial femoral and popliteal veins and the tibioperoneal trunk and the proximal aspect of the posterior tibial and peroneal veins of the left leg was performed. Normal compressibility, augmentation of color Doppler flow after calf compression, and respiratory variation of Doppler flow is seen. Thus, there are no sonographic findings of deep venous thrombosis within these veins. The greater saphenous vein is thrombosed related to ablation therapy. Impression: There are no sonographic findings of deep venous thrombosis within the veins discussed above of the left lower extremity.
[2017-01-26 13:47] LABS: BACTERIA,URINE 0 /HPF (0-FEW); RBC,URINE 0 /HPF (0-2); SQUAMOUS EPITHELIAL CELL,UR FEW /LPF; WBC,URINE 0 /HPF (0-4)
[2017-01-26] MEDS ORDERED: ONDANSETRON PF 4 MG/2 ML VIAL. IV PRN (14:00)
[2017-01-26 14:17] LABS: PROTHROMBIN TIME PATIENT 12.7 SEC (11.7-14.0)
[2017-01-26] MEDS ORDERED: LOSA1TAB16 PO (14:57)
[2017-01-26] MEDS ORDERED: NALT1TAB PO (14:57)
[2017-01-26 15:04] VITALS: BP 129/90
--- NOTE | 2017-01-26 16:29 | RAD ---
Ventilation/perfusion lung scan, 01/26/2017: HISTORY: Dizziness, fatigue The ventilation study was performed utilizing 18 mCi of xenon-133. Activity in the lungs is mildly heterogeneous. There is fairly good washout of xenon from the lungs. Perfusion imaging was performed utilizing 5.5 mCi of technetium 99m MAA. A similar pattern of activity is present in the lungs. No segmental or unmatched perfusion defects are seen. IMPRESSION: There are no VQ findings to suggest pulmonary emboli. Electronically signed by: Bert Ruiz MD (01/26/2017 4:26 PM) [facility] [place]
[2017-01-26 19:00] VITALS: BP 122/56
[2017-01-26 23:00] VITALS: BP 105/63
--- NOTE | 2017-01-27 01:59 | ACF ---
Admission Forms Criteria DIZZINESS Clinical Indications for Admission to Inpatient Care (Place 'X' for any and all applicable criteria): Admission is indicated for ANY ONE of the following(1)(2)(3)(4): [ X]I. Inpatient admission required rather than observation care (Also use Dizziness: Observation Care as appropriate) because of ANY ONE of the following: [ ]a) Hemodynamic instability that is severe or persistent [ ]b) Signs or symptoms that are severe or persistent (eg, vomit, orthostasis, inability to ambulate) [ ]c) Cardiac arrhythmias of immediate concern [ ]d) Severe (new) neurologic findings requiring inpatient care as indicated by ANY ONE of the following(6)(7): [ ]1) Cerebral bleeding, ischemia, or vasospasm(8)(9) [ ]2) Increased intracranial pressure or hydrocephalus(10)(11)(12) [ ]3) Papilledema [ ]4) Cerebral edema [ ]5) Mass effect on CT scan [ ]e) Continuous IV infusion of anticoagulation, platelet inhibitor, vasoactive, or antiarrhythmic medication [ ]f) Cerebral bleeding, hydrocephalus, or vasospasm monitoring(14) [ ]g) Increased intracranial pressure or cerebral edema monitoring [ ]h) Vomiting that is severe or persistent [ X]i) Other condition, treatment or monitoring requiring inpatient admission [ ]II. A suspected etiology that requires admission for treatment [ ]III. Acute bacterial labyrinthitis [ ]IV. Cerebellar, brainstem, or cerebral ischemia or hemorrhage (5) Extended stay beyond goal length of stay may be needed for evaluating and treating a specific cause of dizziness, including(32) [ ]a) Head injury (Also use Traumatic Brain Injury, Nonsurgical Treatment guideline) [ ]b) New-onset vertebrobasilar vascular insufficiency [ ]c) Acute Meniere disease with intractable symptoms [ ]d) Cardiac arrhythmias or conduction defects [ ]e) Acute neurologic event causing dizziness [ ]f) Myocardial ischemia [ ]g) Acute bacterial labyrinthitis. [ ]h) Severe acute vestibular neuronitis The original [facility] content created by [employer] has been revised. The portions of the content which have been revised are identified through the use of italic text or in bold, and [facility] has neither reviewed nor approved the modified material. All other unmodified content is copyright [facility]. Please see references footnoted in the original [facility] edition 2016 Admission Criteria Met?: Yes MADHURI CERDA Jan 27, 2017 01:59
[2017-01-27 03:00] VITALS: BP 129/69
[2017-01-27] MEDS: ACETAMINOPHEN 325 MG TABLET. PO PRN ×2 (03:33→10:48)
[2017-01-27 06:45] LABS: BASO % 1 % (0-3); EOS % 4 % (0-3); HEMATOCRIT 41.6 % (36.0-47.0); HEMOGLOBIN 14.1 g/dL (12.0-15.5); LYMPH % 19 % (24-48); MEAN CORPUSCULAR HEMOGLOBIN 31 pg (25-35); MEAN CORPUSCULAR HGB CONC 34 g/dL (31-37); MEAN CORPUSCULAR VOLUME 92 fL (79-100); MONO % 9 % (0-9); NEUT % 67 % (31-73); PLATELET COUNT 173 x10^3/uL (140-400); RED BLOOD COUNT 4.54 x10^6/uL (3.50-5.40); RED CELL DISTRIBUTION WIDTH 13.5 % (11.5-14.5); WHITE BLOOD COUNT 5.2 x10^3/uL (4.0-11.0)
[2017-01-27 07:05] LABS: CALCIUM 9.3 mg/dL (8.5-10.1); CREATININE 0.9 mg/dL (0.6-1.0); GFR 76.3; POTASSIUM 3.3 mmol/L (3.5-5.1)
[2017-01-27 07:40] VITALS: BP 115/53
[2017-01-27] MEDS ORDERED: POTASSIUM CHLORIDE 20 MEQ TABLET.ER. PO ONE (08:45)
[2017-01-27] MEDS ORDERED: PANTOPRAZOLE 40 MG TABLET.DR. PO PRN (08:45)
--- NOTE | 2017-01-27 09:16 | EKG ---
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
[2017-01-27] MEDS: METOPROLOL TART IMMED RELEASE 25 MG TABLET. PO SCH ×2 (09:39→20:30)
[2017-01-27] MEDS: cycloSPORINE 0.05% OPTH 1 DROP DROPERETTE OU SCH ×2 (09:40→20:30)
[2017-01-27] MEDS: LOSARTAN POTASSIUM 50 MG TABLET. PO SCH (09:40)
[2017-01-27] MEDS: hydroCHLOROthiazide 12.5 MG CAPSULE PO SCH (09:40)
[2017-01-27 11:21] VITALS: BP 138/66
[2017-01-27] MEDS: SUCRALFATE 1 GM TABLET. PO SCH ×2 (11:42→20:30)
[2017-01-27] MEDS: LEVOTHYROXINE 100 MCG TABLET PO SCH (11:42)
--- NOTE | 2017-01-27 13:52 | PDOC1 ---
History and Physical Date of Admission Date of Admission DATE: 01/27/17 TIME: 13:45 Identification/Chief Complaint Chief Complaint Covering for Dr. Barton Dizziness and leg cramps Problems: History of Present Illness History of Present Illness This patient is a 66-year-old lady that has a known history of hypertension, obesity, episodes of DVT as well as electrolyte imbalances that has been off her anticoagulation. The patient comes in feeling dizzy and lightheaded with things spinning and generalized aches aches and pains but especially bilateral legs cramps. She came to the emergency room because of these problems and feeling very weak that she was going to pass out at times. She was seen and evaluated in the emergency room and was found to be hypokalemic and he was decided to bring her in for further workup evaluation and treatment at the time that I saw the patient she denies having any chest pains and is not having significant dyspnea at rest Past Medical History Cardiovascular: HTN Pulmonary: Other GI: GERD, Other Heme/Onc: No pertinent hx Hepatobiliary: No pertinent hx Psych: No pertinent hx Musculoskeletal: Osteoarthritis Rheumatologic: No pertinent hx Infectious disease: No pertinent hx Renal/: No pertinent hx Endocrine: Hypothyroidism, Other Past Surgical History Past Surgical History: Cholecystectomy, Other Family History Family History: Cancer Social History ALCOHOL: none Drugs: None Current Problem List Problem List Problems Medical Problems: (1) Dizziness Status: Acute Problems: Current Medications Current Medications Current Medications Ondansetron HCl (Zofran) 4 mg PRN Q8HRS PRN IV NAUSEA/VOMITING; Start 01/26/17 at 14:00; Stop 01/27/17 at 13:59 Acetaminophen (Tylenol) 650 mg PRN Q4HRS PRN PO FEVER Last administered on 01/27 10:48; Start 01/26/17 at 14:00; Stop 01/27/17 at 13:59 Potassium Chloride (Klor-Con) 40 meq 1X ONCE PO Last administered on 09:39; Start 01/27/17 at 08:45; Stop 01/27/17 at 08:46; Status DC Cyclosporine (Restasis) 1 drop BID OU Last administered on 01/27/17 09:40; Start 01/27/17 at 09:00 Levothyroxine Sodium (Synthroid) 100 mcg DAILYAC PO Last administered on 11:42; Start 01/27/17 at 09:00 Pantoprazole Sodium (Protonix) 40 mg PRN DAILY PRN PO INDIGESTION Last administered on 01/27/17 09:44; Start 01/27/17 at 08:45 Sucralfate (Carafate) 1 gm BID PO Last administered on 01/27/17 11:42; Start 01/27/17 at 09:00 Losartan Potassium (Cozaar) 50 mg DAILY PO Last administered on 01/27/17 09:40 ; Start 01/27/17 at 09:00 Metoprolol Tartrate (Lopressor) 25 mg BID PO Last administered on 01/27/17 09: 39; Start 01/27/17 at 09:00 Hydrochlorothiazide (Microzide) 12.5 mg DAILY PO Last administered on 09:40; Start 01/27/17 at 09:00 Active Scripts Active Naproxen 250 Mg Tablet 250 Mg PO PRN BID PRN Take with food. Stop use if stomach upset develops. Cyclobenzaprine Hcl 10 Mg Tablet 10 Mg PO TID PRN Percocet 5-325 Mg Tablet (Oxycodone/Acetaminophen) 1 Each Tablet 1-2 Tab PO Q4- 6HRS Colace (Docusate Sodium) 100 Mg Capsule 1 Cap PO BID Reported Contrave ER 8-90 mg Tablet (Naltrexone HCl/Bupropion HCl) 1 Each Tablet.er 1 Each PO Losartan-Hctz 50-12.5 Mg Tab (Losartan/Hydrochlorothiazide) 1 Each Tablet 1 Tab PO DAILY Potassium Chloride 10 Meq Tablet.er 10 Meq PO BID Spironolactone 25 Mg Tablet 1 Tab PO BID Losartan Potassium 100 Mg Tablet 100 Mg PO DAILY Lovenox (Enoxaparin Sodium) 40 Mg/0.4 Ml Disp.syrin 40 Mg SQ Sucralfate 1 Gm Tablet 1 Tab PO BID Xarelto (Rivaroxaban) 20 Mg Tablet 20 Mg PO HS Restasis (Cyclosporine) 1 Each Droperette 1 Drop EACHEYE BID Myrbetriq (Mirabegron) 50 Mg Tab.er.24h 50 Mg PO DAILY Sucralfate 1 Gm Tablet 1 Tab PO BID Victoza 3-Doyle (Liraglutide) 0.6 Mg/0.1 Ml Pen.injctr 0.6 Mg PO DAILY Losartan-Hctz 100-12.5 Mg Tab (Losartan/Hydrochlorothiazide) 1 Each Tablet 1 Each PO DAILY Protonix (Pantoprazole Sodium) 40 Mg Tablet.dr 40 Mg PO DAILY PRN Synthroid (Levothyroxine Sodium) 100 Mcg Tablet 100 Mcg PO DAILYAC Bystolic (Nebivolol) 5 Mg Tablet 5 Mg PO DAILY Allergies Allergies: Coded Allergies: Sulfa (Sulfonamide Antibiotics) (Verified Allergy, Intermediate, 06/14/16) Physical Exam General: Alert, Oriented X3, Cooperative HEENT: Atraumatic, PERRLA Lungs: Clear to auscultation Heart: S1S2, RRR, no rubs Abdomen: Normal bowel sounds, Soft Extremities: Other (1+ edema of both legs and mild tenderness of the calfs) Vitals Vitals Vital Signs Date Time Temp Pulse Resp B/P (MAP) Pulse Ox O2 Delivery O2 Flow Rate FiO2 01/27/17 11:21 97.9 54 20 138/66 (90) 100 Room Air 97.9 Labs Labs Laboratory Tests Test 01/26/17 12:00 01/26/17 13:20 01/26/17 15:10 01/27/17 05:20 White Blood Count 5.3 x10^3/uL (4.0-11.0) 5.2 x10^3/uL (4.0-11.0) Red Blood Count 4.47 x10^6/uL (3.50-5.40) 4.54 x10^6/uL (3.50-5.40) Hemoglobin 13.7 g/dL (12.0-15.5) 14.1 g/dL (12.0-15.5) Hematocrit 41.1 % (36.0-47.0) 41.6 % (36.0-47.0) Mean Corpuscular Volume 92 fL (79-100) 92 fL (79-100) Mean Corpuscular Hemoglobin 31 pg (25-35) 31 pg (25-35) Mean Corpuscular Hemoglobin Concent 33 g/dL (31-37) 34 g/dL (31-37) Red Cell Distribution Width 13.2 % (11.5-14.5) 13.5 % (11.5-14.5) Platelet Count 167 x10^3/uL (140-400) 173 x10^3/uL (140-400) Neutrophils (%) (Auto) 67 % (31-73) 67 % (31-73) Lymphocytes (%) (Auto) 18 % (24-48) 19 % (24-48) Monocytes (%) (Auto) 10 % (0-9) 9 % (0-9) Eosinophils (%) (Auto) 4 % (0-3) 4 % (0-3) Basophils (%) (Auto) 1 % (0-3) 1 % (0-3) Neutrophils # (Auto) 3.6 x10^3uL (1.8-7.7) 3.5 x10^3uL (1.8-7.7) Lymphocytes # (Auto) 1.0 x10^3/uL (1.0-4.8) 1.0 x10^3/uL (1.0-4.8) Monocytes # (Auto) 0.5 x10^3/uL (0.0-1.1) 0.5 x10^3/uL (0.0-1.1) Eosinophils # (Auto) 0.2 x10^3/uL (0.0-0.7) 0.2 x10^3/uL (0.0-0.7) Basophils # (Auto) 0.0 x10^3/uL (0.0-0.2) 0.0 x10^3/uL (0.0-0.2) Prothrombin Time 12.7 SEC (11.7-14.0) Prothromb Time International Ratio 1.0 (0.8-1.1) Activated Partial Thromboplast Time 35 SEC (24-38) D-Dimer (Kiki) 0.85 ug/mlFEU (0.00-0.50) Sodium Level 143 mmol/L (136-145) 143 mmol/L (136-145) Potassium Level 3.6 mmol/L (3.5-5.1) 3.3 mmol/L (3.5-5.1) Chloride Level 108 mmol/L (98-107) 106 mmol/L (98-107) Carbon Dioxide Level 30 mmol/L (21-32) 29 mmol/L (21-32) Anion Gap 5 (6-14) 8 (6-14) Blood Urea Nitrogen 21 mg/dL (7-20) 16 mg/dL (7-20) Creatinine 1.0 mg/dL (0.6-1.0) 0.9 mg/dL (0.6-1.0) Estimated GFR (Cockcroft-Gault) 67.5 76.3 BUN/Creatinine Ratio 21 (6-20) Glucose Level 93 mg/dL (70-99) 87 mg/dL (70-99) Calcium Level 8.6 mg/dL (8.5-10.1) 9.3 mg/dL (8.5-10.1) Magnesium Level 2.2 mg/dL (1.8-2.4) Total Bilirubin 0.8 mg/dL (0.2-1.0) Aspartate Amino Transf (AST/SGOT) 18 U/L (15-37) Alanine Aminotransferase (ALT/SGPT) 26 U/L (14-59) Alkaline Phosphatase 46 U/L (46-116) Troponin I Quantitative < 0.017 ng/mL (0.000-0.055) < 0.017 ng/mL (0.000-0.055) QJ-Elc-L-Type Natriuretic Peptide 89 pg/mL (0-124) Total Protein 6.6 g/dL (6.4-8.2) Albumin 3.5 g/dL (3.4-5.0) Albumin/Globulin Ratio 1.1 (1.0-1.7) Urine Collection Type Unknown Urine Color Yellow Urine Clarity Clear Urine pH 6.5 Urine Specific Stow 1.010 Urine Protein Negative mg/dL (NEG-TRACE) Urine Glucose (UA) Negative mg/dL (NEG) Urine Ketones (Stick) Negative mg/dL (NEG) Urine Blood Negative (NEG) Urine Nitrite Negative (NEG) Urine Bilirubin Negative (NEG) Urine Urobilinogen Dipstick 0.2 mg/dL (0.2 mg/dL) Urine Leukocyte Esterase Negative (NEG) Urine RBC 0 /HPF (0-2) Urine WBC 0 /HPF (0-4) Urine Squamous Epithelial Cells Few /LPF Urine Bacteria 0 /HPF (0-FEW) Laboratory Tests Test 01/26/17 15:10 01/27/17 05:20 Troponin I Quantitative < 0.017 ng/mL (0.000-0.055) White Blood Count 5.2 x10^3/uL (4.0-11.0) Red Blood Count 4.54 x10^6/uL (3.50-5.40) Hemoglobin 14.1 g/dL (12.0-15.5) Hematocrit 41.6 % (36.0-47.0) Mean Corpuscular Volume 92 fL (79-100) Mean Corpuscular Hemoglobin 31 pg (25-35) Mean Corpuscular Hemoglobin Concent 34 g/dL (31-37) Red Cell Distribution Width 13.5 % (11.5-14.5) Platelet Count 173 x10^3/uL (140-400) Neutrophils (%) (Auto) 67 % (31-73) Lymphocytes (%) (Auto) 19 % (24-48) Monocytes (%) (Auto) 9 % (0-9) Eosinophils (%) (Auto) 4 % (0-3) Basophils (%) (Auto) 1 % (0-3) Neutrophils # (Auto) 3.5 x10^3uL (1.8-7.7) Lymphocytes # (Auto) 1.0 x10^3/uL (1.0-4.8) Monocytes # (Auto) 0.5 x10^3/uL (0.0-1.1) Eosinophils # (Auto) 0.2 x10^3/uL (0.0-0.7) Basophils # (Auto) 0.0 x10^3/uL (0.0-0.2) Sodium Level 143 mmol/L (136-145) Potassium Level 3.3 mmol/L (3.5-5.1) Chloride Level 106 mmol/L (98-107) Carbon Dioxide Level 29 mmol/L (21-32) Anion Gap 8 (6-14) Blood Urea Nitrogen 16 mg/dL (7-20) Creatinine 0.9 mg/dL (0.6-1.0) Estimated GFR (Cockcroft-Gault) 76.3 Glucose Level 87 mg/dL (70-99) Calcium Level 9.3 mg/dL (8.5-10.1) VTE Prophylaxis Ordered VTE Prophylaxis Devices: Yes VTE Pharmacological Prophylaxi: No Assessment/Plan Assessment/Plan This patient comes in with multiple complaints and she has had previous episodes of DVTs as well as hypertension and other problems. She was found to be hypokalemic and having some calf tenderness of the legs. I would like to get a VQ scan to evaluate for a possible pulmonary embolism resulting from her previous episodes of DVTs. Will get a venous Doppler to evaluate for possible DVT. I will cover until CAITLIN Joyner MD Jan 27, 2017 13:52
[2017-01-27 15:10] VITALS: BP 121/53
[2017-01-27 19:00] VITALS: BP 143/73
[2017-01-27 23:00] VITALS: BP 114/49
[2017-01-28 03:00] VITALS: BP 138/60
[2017-01-28 07:17] VITALS: BP 136/63
[2017-01-28 07:25] LABS: ALBUMIN 3.1 g/dL (3.4-5.0); ALBUMIN/GLOBULIN RATIO 0.9 (1.0-1.7); CALCIUM 8.9 mg/dL (8.5-10.1); GFR 67.5; POTASSIUM 3.5 mmol/L (3.5-5.1); TOTAL BILIRUBIN 0.5 mg/dL (0.2-1.0); TOTAL PROTEIN 6.7 g/dL (6.4-8.2)
[2017-01-28] MEDS: cycloSPORINE 0.05% OPTH 1 DROP DROPERETTE OU SCH (08:09)
[2017-01-28] MEDS: hydroCHLOROthiazide 12.5 MG CAPSULE PO SCH (08:09)
[2017-01-28] MEDS: LOSARTAN POTASSIUM 50 MG TABLET. PO SCH (08:11)
[2017-01-28] MEDS: METOPROLOL TART IMMED RELEASE 25 MG TABLET. PO SCH ×2 (08:11→08:13)
[2017-01-28] MEDS: LEVOTHYROXINE 100 MCG TABLET PO SCH (08:11)
[2017-01-28] MEDS ORDERED: PANTOPRAZOLE 40 MG TABLET.DR. PO PRN (09:00)
[2017-01-28] MEDS: SUCRALFATE 1 GM TABLET. PO SCH (10:25)
[2017-01-28 11:01] VITALS: BP 137/72
[2017-01-28] MEDS ORDERED: ACETAMINOPHEN 325 MG TABLET. PO PRN (12:15)
[2017-01-28 14:53] VITALS: BP 141/55
--- NOTE | 2017-01-28 17:05 | PDOC3 ---
Discharge Summary* Date of Admission: Jan 26, 2017 Date of Discharge: Jan 28, 2017 Admitting Diagnosis Problems Medical Problems: (1) Dizziness Status: Acute Problems: Final Diagnosis Dizziness, muscle aches, hypokalemia Problems Medical Problems: (1) Dizziness Status: Acute Brief Hospital Course Ms. Vaughn is a 66 old female who presented with dizziness, leg and arm weakness with cramping. Patient was found to be hypokalemic with a K+ level of 2.6. The potassium was replaced gradually and labs were checked regularly. Today the K+ level is 3.5 and patient feels much better, no aches and pains or cramping. She will be discharged and followed by Dr. Barton Scheduled Cyclosporine (Restasis), 1 DROP EACHEYE BID, (Reported) Docusate Sodium (Colace), 1 CAP PO BID Levothyroxine Sodium (Synthroid), 100 MCG PO DAILYAC, (Reported) Liraglutide (Victoza 3-Doyel), 0.6 MG PO DAILY, (Reported) Losartan Potassium (Losartan Potassium), 100 MG PO DAILY, (Reported) Losartan/Hydrochlorothiazide (Losartan-Hctz 100-12.5 Mg Tab), 1 EACH PO DAILY, ( Reported) Losartan/Hydrochlorothiazide (Losartan-Hctz 50-12.5 Mg Tab), 1 TAB PO DAILY, ( Reported) Mirabegron (Myrbetriq), 50 MG PO DAILY, (Reported) Nebivolol Hcl (Bystolic), 5 MG PO DAILY, (Reported) Oxycodone/Apap 5-325 (Percocet 5-325 Mg Tablet), 1-2 TAB PO Q4-6HRS Potassium Chloride (Potassium Chloride), 10 MEQ PO BID, (Reported) Rivaroxaban (Xarelto), 20 MG PO HS, (Reported) Spironolactone (Spironolactone), 1 TAB PO BID, (Reported) Sucralfate (Sucralfate), 1 TAB PO BID, (Reported) Sucralfate (Sucralfate), 1 TAB PO BID, (Reported) Scheduled PRN Cyclobenzaprine Hcl (Cyclobenzaprine Hcl), 10 MG PO TID PRN for MUSCLE PAIN Naproxen (Naproxen), 250 MG PO PRN BID PRN for PAIN Pantoprazole Sodium (Protonix), 40 MG PO DAILY PRN for INDIGESTION, (Reported) Miscellaneous Medications Enoxaparin Sodium (Lovenox), 40 MG SQ, (Reported) Naltrexone HCl/Bupropion HCl (Contrave ER 8-90 mg Tablet), 1 EACH PO, (Reported) Time Spent Total time spent with patient [] minutes for coordination of care, counseling, and education. CAITLIN HANKINS MD Jan 28, 2017 17:04
== END 2017-01-28 18:11 | disposition home or self-care (01) | DRG 149 ==
LOC: ER 10:50 → 6 SOUTH 13:24
PROVIDERS: ADMIT Specialist; ATTEND Specialist
DX: R42 Dizziness and giddiness (principal); E03.9 Hypothyroidism, unspecified; E66.9 Obesity, unspecified; E87.6 Hypokalemia; I10 Essential (primary) hypertension; K21.9 Gastro-esophageal reflux disease without esophagitis; Z86.718 Personal history of other venous thrombosis and embolism; Z90.49 Acquired absence of other specified parts of digestive tract; M19.90 Unspecified osteoarthritis, unspecified site; Z90.710 Acquired absence of both cervix and uterus; Z88.2 Allergy status to sulfonamides; E87.8 Other disorders of electrolyte and fluid balance, not elsewhere classified
CPT/HCPCS: 36415; 70450; 71010; 78582; 80048; 80053; 81001; 83735; 83880; 84484; 85027; 85379; 85610; 85730; 93005; 93971; 96374; A9540; A9558; 99285-25

== ENCOUNTER → 2017-05-17 | Outpatient (CLI) | payer OTHER ==
[~2017-05-17] MED LIST changes: +CONTRAST GIVEN MC PRN; +IOHEXOL 240 MG/ML 50ML VIAL. PO ONE; +IOHEXOL 300 MG/ML 100ML VIAL. IV ONE; -LOSA1TAB18 PO; +LOSA1TAB19 PO; +LOSA1TAB25 PO; +NALT1TAB PO; -NAPR250T2 PO; +NAPR250T6 PO
--- NOTE | 2017-05-17 11:41 | RAD ---
CT of the abdomen and pelvis with contrast 05/17/2017 Indication: Abdominal pain. Comparison study: CT of the abdomen and pelvis August 24, 2014 Technique: Multidetector CT imaging of the abdomen and pelvis was obtained following the administration of IV contrast. Findings: Visualized lung bases are grossly unremarkable. Prior cholecystectomy noted. There is a small hypodensity in the right hepatic lobe measuring between 5 and 6 mm in diameter the appearance is nonspecific but most likely reflects a small cyst and is stable from prior exam. Spleen is unremarkable. Minimal adrenal gland thickening is noted bilaterally, unchanged from prior exam. Kidneys demonstrate no acute abnormality. Pancreas is grossly unremarkable. There is no evidence of bowel obstruction. No evidence of acute inflammatory change involving the bowel is identified. Descending colonic and sigmoid colonic diverticulosis is noted. No evidence of acute diverticulitis is identified the bladder is decompressed limiting evaluation. Prior hysterectomy is noted. No free fluid or free air is present in the abdomen or pelvis. Postsurgical changes noted in the gastric fundus. No evidence of acute osseous abnormality is identified Impression: No evidence of acute intra-abdominal abnormality or acute change from prior exam is identified. PQRS Compliance Statement: One or more of the following individualized dose reduction techniques were utilized for this examination: 1. Automated exposure control 2. Adjustment of the mA and/or kV according to patient size 3. Use of iterative reconstruction technique
== END | disposition home or self-care (01) ==
LOC: CT 09:17
PROVIDERS: ATTEND Internal Medicine Gastroenterology
DX: R10.9 Unspecified abdominal pain (principal); Z90.49 Acquired absence of other specified parts of digestive tract
CPT/HCPCS: 74177; Q9966; Q9967

== ENCOUNTER → 2017-06-15 | Outpatient (CLI) | payer OTHER ==
[~2017-06-15] MED LIST changes: -CONTRAST GIVEN MC PRN; -IOHEXOL 240 MG/ML 50ML VIAL. PO ONE; -IOHEXOL 300 MG/ML 100ML VIAL. IV ONE
--- NOTE | 2017-06-17 08:54 | RAD ---
DATE: 06/15/2017 EXAM: DIGITAL SCREEN BILAT W/CAD HISTORY: Routine screening COMPARISON: Previous mammogram from 2016 and 2014 This study was interpreted with the benefit of Computerized Aided Detection (CAD). FINDINGS: Breast Density: SCATTERED The breast parenchyma shows scattered fibroglandular densities. Breast parenchyma level B. The skin and nipples are within normal limits. Scattered benign appearing calcifications are seen in the right breast. Stable small round mass in the upper outer quadrant when compared to mammogram from 2015 and is benign given long-term stability . No suspicious calcifications, spiculated mass or areas of architectural distortion. IMPRESSION: No mammographic evidence of malignancy. Stable mammogram. BI-RADS CATEGORY: 2 BENIGN FINDING(S) RECOMMENDED FOLLOW-UP: 12M 12 MONTH FOLLOW-UP PQRS compliance statement: Patient information was entered into a reminder system with a target due date for the next mammogram. Mammography is a sensitive method for finding small breast cancers, but it does not detect them all and is not a substitute for careful clinical examination. A negative mammogram does not negate a clinically suspicious finding and should not result in delay in biopsying a clinically suspicious abnormality. "Our facility is accredited by the [employer] Mammography Program."
== END | disposition home or self-care (01) ==
LOC: MAMMO 07:56
PROVIDERS: ATTEND Obstetrics & Gynecology
DX: Z12.31 Encounter for screening mammogram for malignant neoplasm of breast (principal)
CPT/HCPCS: G0202; 77067

== ENCOUNTER → 2018-11-13 | Outpatient (CLI) | payer OTHER ==
[~2018-11-13] MED LIST changes: +LOSA100T14 PO; -LOSA100T6 PO; -LOSA25TA4 PO; +LOSA25TA54 PO; -OXYC-323 PO; +OXYC1TAB15 PO; -SPIR25TA3 PO; +SPIR25TA5 PO
--- NOTE | 2018-11-13 12:58 | KCIC ---
CT MAXILLOFACIAL WO CONTRAST dated 11/13/2018 9:30 AM Indication: Chronic sinusitis, headache.. Comparison: CT head dated 01/26/2017. Technique: Contiguous axial imaging the maxillofacial bones obtained with thin cut coronal and sagittal reconstruction. One or more of the following individualized dose reduction techniques were utilized for this examination: 1. Automated exposure control 2. Adjustment of the mA and/or kV according to patient size 3. Use of iterative reconstruction technique Findings: Paranasal sinuses are clear. No significant mucosal thickening or air-fluid level. There is mild mucosal thickening along the right ostiomeatal unit which is otherwise patent. The infundibula are patent. Nasal septum is mildly deviated to the right. No bony destructive process or periostitis. The mastoid air cells and middle ears are clear. Limited imaged portions of the brain parenchyma are unremarkable. No significant soft tissue abnormality. IMPRESSION: No significant sinus disease. Electronically signed by: Florentin Pitt MD (11/13/2018 12:55 PM) [id number]
== END | disposition home or self-care (01) ==
LOC: KCIC CT 09:24
PROVIDERS: ATTEND Specialist
DX: J34.2 Deviated nasal septum (principal); J32.9 Chronic sinusitis, unspecified
CPT/HCPCS: 70486